=== PATIENT | male | born 1975 | race Two or more races ===

== ENCOUNTER → 2024-06-11 | Outpatient (CLI) | payer MEDICAID, SELFPAY ==
--- NOTE | 2024-06-11 08:56 | XR_ITS ---
Examination: Left elbow 3 views Technique: Elbow AP, oblique, lateral 3 views Exam date and time: June 11, 2024 0955 hours INDICATIONS: Patient fell one month ago with injury to the elbow, elbow pain. FINDINGS: No acute fracture No dislocation No foreign body IMPRESSION: No acute fracture.
--- NOTE | 2024-06-11 08:56 | XR_ITS ---
EXAMINATION: Cervical spine, 5 views Technique: Cervical spine AP, AP odontoid, lateral, bilateral obliques, 5 views Exam date and time: June 11, 2024 0955 hours INDICATIONS: Patient fell one year ago with injury to the neck, neck pain FINDINGS: Mild osteopenia. No cervical fracture. Intact odontoid No significant neural foraminal stenosis IMPRESSION: No cervical fracture No significant cervical disc narrowing
== END | disposition home or self-care (01) ==
PROVIDERS: PCP Physician Assistant; Referring Provider Physician Assistant; Visit Provider Physician Assistant
DX: S19.9XXA Unspecified injury of neck, initial encounter (principal); S59.902A Unspecified injury of left elbow, initial encounter; W19.XXXA Unspecified fall, initial encounter
CPT/HCPCS: 72050; 73080